=== PATIENT | female | born 1955 | race Caucasian/White ===

== ENCOUNTER 2018-05-31 12:34 | Emergency (ER) | payer BC, OTHER ==
[2018-05-31 12:52] VITALS: BP 122/63
--- NOTE | 2018-05-31 13:49 | UC ---
Knee Pain HPI - HPI Summary HPI Summary: knee pain (mild ) x weeks acutely worse using stairs yesterday - History of Current Complaint Chief Complaint: UCLowerExtremity Stated Complaint: RIGHT KNEE PAIN Time Seen by Provider: 05/31/18 13:00 Hx Obtained From: Patient Onset/Duration: Sudden Onset, Worse Since - past 24 hours Severity Initially: Mild Severity Currently: Severe Pain Intensity: 8 Pain Scale Used: 0-10 Numeric Character: Dull, Aching, Throbbing Aggravating Factor(s): Movement, Weight Bearing Alleviating Factor(s): Rest Associated Signs And Symptoms: Positive: Negative Able to Bear Weight: Yes - Allergies/Home Medications Allergies/Adverse Reactions: Allergies Allergy/AdvReac Type Severity Reaction Status Date / Time ENVIRONMENTAL Allergy SNEEZE, Uncoded 05/31/18 12:49 WATERY EYES, RUNNY NOSE, HEADACHE Home Medications: Home Medications Albuterol inh POWDER (NF) [Proair Respiclick] 108 mcg IN Q4HR 05/31/18 [History Confirmed 05/31/18] Levothyroxine TAB* [Synthroid TAB*] 50 mcg PO DAILY 05/31/18 [History Confirmed 05/31/18] Mometasone 220 MCG MDI * [Asmanex 220 MCG MDI *] 1 puff INH BID PRN 05/31/18 [ History Confirmed 05/31/18] PMH/Surg Hx/FS Hx/Imm Hx Previously Healthy: Yes Endocrine History: Dyslipidemia Cardiovascular History: Hypertension Respiratory History: Asthma - Surgical History Surgical History: Yes Surgery Procedure, Year, and Place: 1984, 1986, [facility]. 1997, 1998 BILATERAL CARPAL TUNNEL, [facility]. 2010 RIGHT ROTATOR CUFF REPAIR, [facility]. 2012 LEFT ROTATOR CUFF REPAIR/[facility]. 2013 RT FOOT [facility]. 08/2013 SINUS SURGERY [place]. RIGHT HAND CYST REMOVED 05/2015 - Family History Known Family History: Positive: Hypertension - Social History Alcohol Use: None Alcohol Amount: NONE IN 2013 Substance Use Type: None Smoking Status (MU): Never Smoked Tobacco Have You Smoked in the Last Year: No - Immunization History Most Recent Influenza Vaccination: December 2013 Review of Systems All Other Systems Reviewed And Are Negative: Yes Constitutional: Positive: Negative Skin: Positive: Negative Eyes: Positive: Negative ENT: Positive: Negative Respiratory: Positive: Negative Cardiovascular: Positive: Negative Gastrointestinal: Positive: Negative Genitourinary: Positive: Negative Motor: Positive: Negative Neurovascular: Positive: Negative Musculoskeletal: Positive: Arthralgia - right knee Neurological: Positive: Negative Psychological: Positive: Negative Physical Exam Triage Information Reviewed: Yes Appearance: Well-Appearing, No Pain Distress, Well-Nourished Vital Signs: Initial Vital Signs Temp 97.6 F 05/31/18 12:47 Pulse 66 05/31/18 12:47 Resp 21 05/31/18 12:47 BP 122/63 05/31/18 12:47 Pulse Ox 99 05/31/18 12:47 Vital Signs Reviewed: Yes Eyes: Positive: Conjunctiva Clear ENT: Positive: Hearing grossly normal. Negative: Nasal congestion, Nasal drainage, Trismus, Muffled voice, Hoarse voice Neck: Positive: Supple, Nontender Respiratory: Positive: Lungs clear, Normal breath sounds, No respiratory distress Cardiovascular: Positive: RRR, No Murmur Musculoskeletal: Positive: ROM Limited @ - right knee, limited flexion and pain with full extension, stable joint Neurological: Positive: Alert Psychological Exam: Normal Skin Exam: Normal Diagnostics - Radiology No standard instances Radiology Interpretation Completed By: Radiologist Summary of Radiographic Findings: right knee - no fx, small effusion Knee Pain Course/Dx - Differential Dx/Diagnosis Provider Diagnosis: Right knee pain, Effusion, right knee Discharge - Sign-Out/Discharge Documenting (check all that apply): Patient Departure All imaging exams completed and their final reports reviewed: Yes - Discharge Plan Condition: Stable Disposition: HOME Patient Education Materials: Knee Pain (ED), Knee Immobilizer (ED) Referrals: Braxton Neely MD [Primary Care Provider] - As Soon As Possible Additional Instructions: aleve 1-2 twice daily with food ice twice daily - Billing Disposition and Condition Condition: STABLE Disposition: Home
== END 2018-05-31 13:56 | disposition home or self-care (01) ==
LOC: UCCORT 12:34
DX: M25.561 Pain in right knee (principal); M25.461 Effusion, right knee; I10 Essential (primary) hypertension; J45.909 Unspecified asthma, uncomplicated; Z79.899 Other long term (current) drug therapy; Z91.09 Other allergy status, other than to drugs and biological substances
CPT/HCPCS: 99212; G0463

== ENCOUNTER 2018-07-17 05:39 | Day surgery (SDC) | payer BC ==
[~2018-07-17 05:39] MED LIST: Buffered Lidocaine 1% SYRIN* 1 ML/SYRINGE INTRADERM ONE
[2018-07-17] MEDS ORDERED: Lactated Ringers 1000 ML Bag* 1,000 ML IV SCH (06:00)
[2018-07-17] MEDS ORDERED: Famotidine IV* 10 MG/ML 2 ML (20 mg) IV ONE (06:00)
[2018-07-17] MEDS ORDERED: ceFAZolin 2 GM PREMIX in ORs 2 GM/50 ML BAG IVPB ONE (06:16)
[2018-07-17] MEDS ORDERED: Famotidine IV* 10 MG/ML 2 ML (20 mg) ONE (06:17)
[2018-07-17] MEDS ORDERED: Buffered Lidocaine 1% SYRIN* 1 ML/SYRINGE INTRADERM ONE (06:17)
[2018-07-17] MEDS ORDERED: methylPREDNISolone ACETATE 80* 80 MG/ML 1 ML VIAL ONE (06:43)
[2018-07-17] MEDS ORDERED: EPINEPHRINE 1 MG/ML 1 ML VIAL ONE (06:43)
[2018-07-17] MEDS ORDERED: Bupivacaine 0.5%* 50 ML VIAL ONE (06:44)
[2018-07-17] MEDS ORDERED: fentaNYL* 50 MCG/ML 2 ML VIAL (100 MCG VIAL) ONE (07:25)
[2018-07-17] MEDS ORDERED: Midazolam* 1 MG/ML 5 ML VIAL (5 MG) ONE (07:25)
[2018-07-17] MEDS ORDERED: Propofol* 10 MG/ML 20 ML BTL ONE (07:48)
[2018-07-17] MEDS ORDERED: HYDROmorphone INJ1* 1 MG/ML SYRINGE ONE ×2 (07:48→08:36)
[2018-07-17] MEDS ORDERED: Ondansetron INJ* 2 MG/ML VIAL ONE (07:48)
[2018-07-17] MEDS ORDERED: DiMENhydriNATE IV* 50 MG/ML VIAL ONE ×2 (07:48→09:29)
[2018-07-17] MEDS ORDERED: Ketorolac INJ* 30 MG/ML 1 ML VIAL ONE (07:48)
[2018-07-17] MEDS ORDERED: Dexamethasone IV* 4 MG/ML 1 ML (4 MG) ONE (07:48)
[2018-07-17] MEDS ORDERED: Lidocaine 2% PF * 5 ML VIAL ONE (07:48)
[2018-07-17] MEDS ORDERED: Naloxone* 0.4 MG/ML 1 ML VIAL IV PRN (08:10)
[2018-07-17] MEDS ORDERED: DiMENhydriNATE IV* 50 MG/ML VIAL IV PUSH PRN (08:10)
[2018-07-17] MEDS ORDERED: Acetaminophen IV 1GM/100ML * 1,000 MG/100 ML VIAL IVPB ONE (08:10)
[2018-07-17] MEDS ORDERED: Acetaminophen IV 1GM/100ML * 100 ML ONE (08:36)
[2018-07-17] MEDS: HYDROmorphone INJ1* 1 MG/ML SYRINGE IV PRN ×2 (08:37→08:55)
[2018-07-17] MEDS ORDERED: oxyCODONE TAB* 5 MG TAB ONE (09:29)
[2018-07-17 10:57] VITALS: BP 139/83
--- NOTE | 2018-07-17 23:49 | OP ---
DATE OF OPERATION: 07/17/18 - [facility] DATE OF : 55 ATTENDING SURGEON: Kaitlin Francois MD SPORTS DOCTOR: MARTHA Emanuel. Jan Miracle did help throughout the procedure with preparation of the leg, wound retraction, manipulation of the knee, and wound closure. ANESTHESIOLOGIST: Dr. Moreland. ANESTHESIA: General. PRE-OP DIAGNOSIS: Right knee medial and lateral meniscal tears, mild-to- moderate osteoarthritis. POST-OP DIAGNOSIS: Right knee medial and lateral meniscal tears, mild-to- moderate osteoarthritis. OPERATIVE PROCEDURE: Right knee arthroscopy with partial medial meniscectomy and partial lateral meniscectomy. COMPLICATIONS: None. ESTIMATED BLOOD LOSS: Less than 25 cc. SPECIMEN: None. BRIEF HISTORY/INDICATION: Ms. Mena is a 62-year-old female who developed increasing pain and mechanical symptoms in her right knee over the last few months. Conservative treatment failed to relieve her pain. MRI confirmed both medial and lateral meniscal tears. Due to continued pain and decreased quality of life, the patient elected to undergo right knee arthroscopy with partial meniscectomy, possible chondroplasty, possible synovectomy, possible plica excision. Informed consent was obtained from the patient. She understood the risk of surgery included, but were not limited to bleeding, infection, damage to nearby structures, continued pain, need for further surgery, re-tear of the meniscus, stroke, heart attack, blood clot, , and anesthesia complications. She wished to proceed. INTRAOPERATIVE FINDINGS: Intraoperatively, the patient was noted to have a radial tear in the posteromedial meniscus with displacement anteriorly. Also, she had a significant bucket-handle tear involving the majority of the white- red zone of the lateral meniscus with displacement. The patient was noted to have some grade 3 and 4 Outerbridge cartilage changes in the patellofemoral compartment, and grade 2 and 3 Outerbridge bridge cartilage changes in the medial and lateral compartments. DESCRIPTION OF PROCEDURE: Ms. Mena was identified in the preanesthesia unit. Her right lower extremity was marked as the correct operative side. Informed consent was signed and placed in the chart. The patient was taken to the operating room and placed under general anesthesia. Right lower extremity was prepped and draped in the usual sterile fashion. Preop time-out was made to correctly identify the patient, side, and site. Appropriate perioperative antibiotics were given within 1 hour of incision. A standard 0.5 cm anterolateral portal incision was made with a 10 blade and carried down to the capsule. A trocar was introduced. As soon as light and water sources were turned on, there was immediate visualization of the suprapatellar pouch. A tour of the knee joint was performed. Suprapatellar pouch showed no obvious abnormalities. Patellofemoral compartment showed some grade 3 and 4 Outerbridge cartilage changes. Medial gutters showed no obvious plica or loose body. Medial compartment showed grade 2 and 3 Outerbridge cartilage changes. There was obvious tear in the posterior horn of the medial meniscus with some anterior displacement. ACL and PCL appeared to be intact. The knee was placed in the figure-of-4 position. There was a displaced bucket- handle tear of the lateral meniscus with significant displacement into the joint space. Lateral compartment showed some grade 2 and 3 Outerbridge cartilage changes. Lateral gutter had no obvious abnormality. Under direct visualization, a medial portal incision was made with a 10 blade. A probe was introduced. A second tour of the knee joint was performed. No additional findings were noted. Straight biter and shaver were used to perform partial medial meniscectomy along the posterior horn of medial meniscus in the white-red zone. A radial tear was carefully excised. Further probing of the medial meniscus showed no additional tears. Radiofrequency ablation wand was used to further smooth the edge of the meniscus. The knee was placed in the figure-of-4 position. Straight biter and shaver were used to perform partial lateral meniscectomy. The displaced portion of the meniscus was carefully removed. This was largely in the white-red zone, but also somewhat in the red-red zone. Radiofrequency ablation wand was used to further smooth the edge of the remaining lateral meniscus. Further probing of the lateral meniscus showed no additional tears or flipped fragments. The knee was copiously irrigated with sterile saline. All instruments were carefully removed. Incisions were closed using 3-0 nylon suture. Intra- articular injection of 80 mg Depo-Medrol and 6 cc of 0.25% Marcaine was placed in the knee joint. The patient's incisions were covered with Xeroform, 4x4's, Webril. Talib wrap and cold packs were placed over this. The patient's anesthesia was reversed without difficulty. She was taken to the PACU in stable condition. Intended weightbearing will be weightbearing as tolerated. Intended DVT prophylaxis will be aspirin. [id number]/[facility] #: [id number] [facility]
== END 2018-07-17 10:59 | disposition home or self-care (01) ==
LOC: OR 05:39
PROVIDERS: ATTEND Orthopaedic Surgery Adult Reconstructive Orthopaedic Surgery
DX: M25.461 Effusion, right knee (principal); S83.241A Other tear of medial meniscus, current injury, right knee, initial encounter; S83.281A Other tear of lateral meniscus, current injury, right knee, initial encounter; M17.11 Unilateral primary osteoarthritis, right knee; G25.81 Restless legs syndrome; M72.2 Plantar fascial fibromatosis; F32.9 Major depressive disorder, single episode, unspecified; F41.9 Anxiety disorder, unspecified; E78.5 Hyperlipidemia, unspecified; G43.909 Migraine, unspecified, not intractable, without status migrainosus; K21.9 Gastro-esophageal reflux disease without esophagitis; X58.XXXA Exposure to other specified factors, initial encounter
CPT/HCPCS: A9270-GY; J0690; J1040; J1100; J1170; J1240; J1885; J2250; J2405; J2704; J3010; J3490

== ENCOUNTER 2021-02-09 10:56 | Observation (INO) ==
[~2021-02-09 10:56] MED LIST changes: +Buffered Lidocaine 1% SYRIN 1 ml INTRADERM ONE; -Buffered Lidocaine 1% SYRIN* 1 ML/SYRINGE INTRADERM ONE; +Lactated Ringers 1000 ml BAG 1,000 ML IV SCH
[2021-02-09] MEDS ORDERED: Lidocaine 2% PF 5 ML VIAL ONE (11:28)
[2021-02-09 11:44] LABS: INR 1.03 (0.86-1.15)
[2021-02-09] MEDS ORDERED: ceFAZolin 2 GM in NS PREMIX 2 GM/100 ML BAG IVPB ONE (11:44)
[2021-02-09] MEDS ORDERED: Phenylephrine IV 10 MG/ML 1 ml VIAL ONE (11:50)
[2021-02-09] MEDS ORDERED: Ropivacaine 5 MG/ML 20 ML VIAL 0.5% (100 MG) ONE (12:55)
[2021-02-09] MEDS ORDERED: fentaNYL 100 mcg/2 ml 50 MCG/ML VIAL ONE (12:57)
[2021-02-09] MEDS ORDERED: Midazolam 2 mg/2 ml VIAL 1 mg/ml 2 ml VIAL (2 mg) ONE (12:57)
[2021-02-09] MEDS ORDERED: ROPIVACAINE 5 MG/ML 30 ML BTL (0.5%) ONE (12:58)
[2021-02-09] MEDS ORDERED: diPHENhydraMINE 25 mg TAB PO PRN (14:15)
[2021-02-09] MEDS ORDERED: Ondansetron 4 mg VIAL 2 MG/ML 2 ml VIAL IV PRN (14:15)
[2021-02-09] MEDS ORDERED: Ondansetron ODT 4 mg TAB 4 MG TAB PO PRN (14:15)
[2021-02-09] MEDS ORDERED: diPHENhydraMINE IV 50 MG/ML 1 ml VIAL (BENADRYL) IV PRN (14:15)
[2021-02-09] MEDS ORDERED: Magnesium Hydroxide LIQ 30 ML UDC PO PRN (14:15)
[2021-02-09] MEDS ORDERED: Lactulose 30 ml UDC PO PRN (14:15)
[2021-02-09] MEDS ORDERED: Morphine 2 MG/ML SYRINGE IV PRN (14:15)
[2021-02-09] MEDS ORDERED: Dexamethasone IV 4 MG/ML VIAL 1 ml VIAL ONE (14:18)
[2021-02-09] MEDS ORDERED: Ondansetron 4 mg VIAL 2 MG/ML 2 ml VIAL ONE (14:18)
[2021-02-09] MEDS ORDERED: Prochlorperazine 5 mg/ml 2 ml VIAL (10 mg) IV PRN (14:19)
[2021-02-09] MEDS ORDERED: Naloxone 0.4 mg VIAL 0.4 mg/ml 1 ml VIAL IV PRN (14:19)
[2021-02-09] MEDS ORDERED: fentaNYL 100 mcg/2 ml 50 MCG/ML VIAL IV PRN (14:19)
[2021-02-09] MEDS ORDERED: Morphine 4 MG/ML VIAL (1 ml) IV PRN (14:19)
[2021-02-09] MEDS ORDERED: Propofol 10 MG/ML 20 ML BTL ONE ×2 (14:50)
[2021-02-09] MEDS: Lactated Ringers 1000 ml BAG 1,000 ML IV SCH (18:15)
[2021-02-09] MEDS: ceFAZolin 1 GM ADVAN 1 GM in NS 0.9% 50 ML 50 ML IVPB SCH (22:00)
[2021-02-09] MEDS: Magnesium Hydroxide LIQ 30 ML UDC PO SCH (22:03)
[2021-02-10] MEDS: Lactated Ringers 1000 ml BAG 1,000 ML IV SCH (04:50)
[2021-02-10] MEDS: ceFAZolin 1 GM ADVAN 1 GM in NS 0.9% 50 ML 50 ML IVPB SCH ×2 (04:50→12:47)
[2021-02-10 06:23] LABS: Hematocrit 31 % (35-47); Hemoglobin 10.5 g/dL (12.0-16.0); Mean Platelet Volume 7.6 fL (7.4-10.4); Platelet Count 207 10^3/uL (150-450)
[2021-02-10 06:46] LABS: Calcium 8.9 mg/dL (8.6-10.3); Potassium 4.2 mmol/L (3.5-5.0); eGFR CKD-EPI 61.8 (>60)
[2021-02-10] MEDS: Magnesium Hydroxide LIQ 30 ML UDC PO SCH (08:58)
[2021-02-10] MEDS ORDERED: Vitamin THERAPEUTIC TAB PO SCH (09:00)
[2021-02-10] MEDS ORDERED: SPIRIVA Respimat (tiotropium) 2.5 mcg/inh Inhaler INH SCH (09:00)
[2021-02-10 11:47] VITALS: BP 122/75
== END 2021-02-10 15:20 | disposition home or self-care (01) ==
LOC: OR 10:56 → SSU 10:56 → EDSTATUS 12:45
PROVIDERS: ADMIT Orthopaedic Surgery Adult Reconstructive Orthopaedic Surgery; ATTEND Orthopaedic Surgery Adult Reconstructive Orthopaedic Surgery